=== PATIENT | male | born 1955 | race Caucasian/White ===

== ENCOUNTER 2021-12-19 11:03 | Emergency (ER) | payer MEDICARE ==
[~2021-12-19] VITALS: Ht 177.8 cm; Wt 76.5 kg
[2021-12-19] MEDS ORDERED: MORPHINE 4 MG/ML 1ML VIAL/SYRINGE IV ONE (13:25)
[2021-12-19] MEDS ORDERED: ONDANSETRON 4MG 2ML VIAL IV ONE (13:25)
[2021-12-19] MEDS ORDERED: NS 1,000 ML IV SCH (15:45)
[2021-12-19] MEDS ORDERED: MORPHINE 4 MG/ML 1ML VIAL/SYRINGE IV PRN (15:45)
[2021-12-19 16:41] LABS: RSV AMPLIFICATION NEGATIVE (NEGATIVE)
[2021-12-19 16:46] VITALS: BP 162/80
[2021-12-19 16:49] LABS: HEMATOCRIT 43.6 % (42.0-52.0); HEMOGLOBIN 14.2 g/dl (13.5-17.5); MEAN CORPUSCULAR HEMOGLOBIN 31.8 pg (27.0-33.0); MEAN CORPUSCULAR HGB CONC 32.6 g/dl (32.0-36.5); MEAN CORPUSCULAR VOLUME 97.5 fl (80.0-96.0); PLATELET COUNT, AUTOMATED 289 10^3/uL (150-450); RED BLOOD COUNT 4.47 10^6/uL (4.30-6.10); WHITE BLOOD COUNT 14.4 10^3/uL (4.0-10.0)
[2021-12-19 16:58] LABS: BLOOD UREA NITROGEN 21 MG/DL (7-18); CALCIUM LEVEL 9.1 MG/DL (8.8-10.2); CARBON DIOXIDE LEVEL 24 MEQ/L (21-32); CHLORIDE LEVEL 107 MEQ/L (98-107); CREATININE FOR GFR 1.11 MG/DL (0.70-1.30); GLOMERULAR FILTRATION RATE > 60.0 (>49); GLUCOSE, FASTING 76 MG/DL (70-100); POTASSIUM SERUM 4.4 MEQ/L (3.5-5.1); SODIUM LEVEL 136 MEQ/L (136-145)
== END 2021-12-19 17:15 | disposition short-term general hospital (02) ==
LOC: M ED 11:03 → EDBD 11:03 → M ED 17:15
DX: S92.062A Displaced intraarticular fracture of left calcaneus, initial encounter for closed fracture (principal); S32.010A Wedge compression fracture of first lumbar vertebra, initial encounter for closed fracture; S32.040A Wedge compression fracture of fourth lumbar vertebra, initial encounter for closed fracture; S32.048A Other fracture of fourth lumbar vertebra, initial encounter for closed fracture; S92.061A Displaced intraarticular fracture of right calcaneus, initial encounter for closed fracture; M51.36 Other intervertebral disc degeneration, lumbar region; M51.37 Other intervertebral disc degeneration, lumbosacral region; M25.78 Osteophyte, vertebrae; I70.0 Atherosclerosis of aorta; W14.XXXA Fall from tree, initial encounter; Y92.828 Other wilderness area as the place of occurrence of the external cause; Y93.89 Activity, other specified; F12.10 Cannabis abuse, uncomplicated
CPT/HCPCS: 72110; 72131; 73610; 73650; 73700; 80048; 85027; 87631; 93005; 96361; 96374; 96375; 96376; 99284; J2270; J2405

== ENCOUNTER 2024-12-08 12:04 | Inpatient (IN) | payer MEDICARE ==
[~2024-12-08] VITALS: Ht 177.8 cm; Wt 72.7 kg
[2024-12-08] MEDS: ONDANSETRON 4MG 2ML VIAL IV ONE (12:31)
[2024-12-08] MEDS: MORPHINE 4 MG/ML 1 ML VIAL IV ONE (12:32)
[2024-12-08 12:36] LABS: BASO # 0.1 10^3/uL (0.0-0.2); BASO % 0.8 % (0.0-1.0); EOS # 0.2 10^3/uL (0.0-0.5); EOS % 1.4 % (0.0-3.0); LYMPH # 2.1 10^3/uL (1.5-5.0); LYMPH % 19.3 % (24.0-44.0); MONO # 1.1 10^3/uL (0.0-0.8); MONO % 10.6 % (2.0-8.0); NEUTROPHILS # 7.2 10^3/uL (1.5-8.5); NEUTROPHILS % 67.3 % (36.0-66.0); PLATELET COUNT, AUTOMATED 312 10^3/uL (150-450)
[2024-12-08 12:52] LABS: INR 0.86
[2024-12-08 13:03] LABS: ALT/SGPT 10 U/L (7.0-40); AST/SGOT 23 U/L (<34); CALCIUM LEVEL 8.8 MG/DL (8.3-10.6); CARBON DIOXIDE LEVEL 26 MMOL/L (20-31); CHLORIDE LEVEL 108 MMOL/L (98-107); CREATININE FOR GFR 1.12 MG/DL (0.70-1.30); GLOMERULAR FILTRATION RATE 71.1 (>49); POTASSIUM SERUM 4.5 MMOL/L (3.5-5.1); SODIUM LEVEL 141 MMOL/L (136-145)
[2024-12-08] MEDS: MORPHINE 4 MG/ML 1 ML VIAL IV PRN (13:33)
[2024-12-08] MEDS: NS (Normal Saline) 0.9% 1,000 ML IV SCH (15:25)
[2024-12-08] MEDS ORDERED: HOME MED LIST COMPLETE! XX SCH (16:15)
[2024-12-08] MEDS ORDERED: HYDROmorphone 2 MG TAB PO PRN (18:00)
[2024-12-08] MEDS ORDERED: MORPHINE 4 MG/ML 1 ML VIAL IV PRN (18:00)
[2024-12-08 20:06] VITALS: BP 159/96; TEMP 97.2; O2SAT 96
[2024-12-08] MEDS: HYDROmorphone 2 MG TAB PO PRN (20:25)
[2024-12-08] MEDS: LR 1,000 ML IV SCH (20:29)
[2024-12-08] MEDS: DOCUSATE SODIUM 100 MG CAPSULE PO ONE (20:29)
[2024-12-08] MEDS: MIRALAX *UNIT DOSE* 17 GM PACKET PO ONE (20:29)
[2024-12-09] VITALS (7 sets, daily range): BP systolic 134–161; BP diastolic 69–94; TEMP 97–98.2; O2SAT 94–98
[2024-12-09 07:16] LABS: PLATELET COUNT, AUTOMATED 270 10^3/uL (150-450)
[2024-12-09 07:53] LABS: CALCIUM LEVEL 8.3 MG/DL (8.3-10.6); CARBON DIOXIDE LEVEL 25 MMOL/L (20-31); CHLORIDE LEVEL 106 MMOL/L (98-107); CREATININE FOR GFR 0.90 MG/DL (0.70-1.30); GLOMERULAR FILTRATION RATE > 90.0 (>49); POTASSIUM SERUM 3.9 MMOL/L (3.5-5.1); SODIUM LEVEL 139 MMOL/L (136-145)
[2024-12-09] MEDS ORDERED: MIDAZOLAM INJ 2 MG/2 ML VIAL As Ordered ONE (07:54)
[2024-12-09] MEDS ORDERED: ACETAMINOPHEN 1000MG/100ML IV BAG As Ordered ONE (07:54)
[2024-12-09] MEDS ORDERED: LIDOCAINE 2% 100 MG/5 ML SDV (FOR ANES.) As Ordered ONE (07:54)
[2024-12-09] MEDS ORDERED: ESMOLOL 100 MG/10 ML VIAL As Ordered ONE (08:38)
[2024-12-09] MEDS ORDERED: ROCURONIUM BROMIDE 50MG/5ML VIAL As Ordered ONE (08:38)
[2024-12-09] MEDS: TRANEXAMIC ACID 100 MG/ML 10ML VIAL As Ordered ONE (09:12)
[2024-12-09] MEDS ORDERED: HYDROmorphone HCL 2 MG/ML 1 ML VIAL As Ordered ONE (09:15)
[2024-12-09] MEDS ORDERED: KETOROLAC 30 MG/ML 1 ML VIAL As Ordered ONE (09:24)
[2024-12-09] MEDS ORDERED: ONDANSETRON 4MG 2ML VIAL As Ordered ONE (09:24)
[2024-12-09] MEDS ORDERED: dexAMETHasone 4 MG/ML 1 ML VIAL As Ordered ONE (09:24)
[2024-12-09] MEDS: LIDOCAINE W/EPINEPHrine 1% 20 ML VIAL As Ordered ONE (09:46)
[2024-12-09] MEDS ORDERED: SUGAMMADEX SODIUM 200 MG/2 ML VIAL As Ordered ONE (10:53)
[2024-12-09] MEDS: VANCOMYCIN 1000MG/20ML VIAL As Ordered ONE (11:48)
[2024-12-09] MEDS ORDERED: MORPHINE 4 MG/ML 1 ML VIAL IV PRN (12:25)
[2024-12-09] MEDS ORDERED: HYDROmorphone 2 MG TAB PO PRN ×2 (12:25)
[2024-12-09] MEDS ORDERED: MORPHINE 10 MG/ML 1 ML VIAL IV PRN (12:42)
[2024-12-09] MEDS: ONDANSETRON 4MG 2ML VIAL IV PRN (13:04)
[2024-12-09] MEDS ORDERED: diphenhydrAMINE 50 MG/ML VIAL IV PRN (13:05)
[2024-12-09] MEDS ORDERED: HYDROMORPHONE HCL 0.5 MG/0.5 ML SYRINGE IV PRN (13:05)
[2024-12-09] MEDS: SENNA 8.6 MG TAB PO SCH (13:20)
[2024-12-09] MEDS: ASCORBIC ACID 500 MG TAB PO SCH (13:20)
[2024-12-09] MEDS: FERROUS SULFATE 325 MG TAB PO SCH (13:20)
[2024-12-09] MEDS: MIRALAX *UNIT DOSE* 17 GM PACKET PO SCH (14:14)
[2024-12-09] MEDS: DOCUSATE SODIUM 100 MG CAPSULE PO SCH (14:15)
[2024-12-09] MEDS: ACETAMINOPHEN *IV* 1,000 MG in IV 1 EA IV SCH (15:58)
[2024-12-09] MEDS: ceFAZolin SODIUM 2 GM in DEXTROSE 5% (D5W) ADV/MINI-BAG 50 ML IV SCH (16:57)
[2024-12-10 02:45] VITALS: BP 111/69; TEMP 97.9; O2SAT 97
[2024-12-10 06:20] LABS: BASO # 0.0 10^3/uL (0.0-0.2); BASO % 0.2 % (0.0-1.0); EOS # 0.0 10^3/uL (0.0-0.5); EOS % 0.2 % (0.0-3.0); LYMPH # 2.0 10^3/uL (1.5-5.0); LYMPH % 16.7 % (24.0-44.0); MONO # 1.5 10^3/uL (0.0-0.8); MONO % 12.6 % (2.0-8.0); NEUTROPHILS # 8.4 10^3/uL (1.5-8.5); NEUTROPHILS % 69.9 % (36.0-66.0); PLATELET COUNT, AUTOMATED 236 10^3/uL (150-450)
[2024-12-10 06:43] LABS: CALCIUM LEVEL 7.9 MG/DL (8.3-10.6); CARBON DIOXIDE LEVEL 25.0 MMOL/L (20-31); CHLORIDE LEVEL 106.0 MMOL/L (98-107); CREATININE FOR GFR 1.03 MG/DL (0.70-1.30); GLOMERULAR FILTRATION RATE 78.6 (>49); POTASSIUM SERUM 3.7 MMOL/L (3.5-5.1); SODIUM LEVEL 140.0 MMOL/L (136-145)
[2024-12-10 07:35] VITALS: BP 150/89; TEMP 97.9; O2SAT 97
[2024-12-10] MEDS: ENOXAPARIN 40 MG/0.4 ML SYRINGE (J1650 PER 10MG) SC SCH (09:02)
[2024-12-10 12:00] VITALS: BP 140/81; TEMP 98.1; O2SAT 92
[2024-12-10 15:19] VITALS: BP 141/83; TEMP 97.9; O2SAT 93
[2024-12-10 20:00] VITALS: BP 142/83; TEMP 97.9; O2SAT 96
[2024-12-11 04:00] VITALS: BP 135/89; TEMP 98.1; O2SAT 97
[2024-12-11 07:23] LABS: BASO # 0.1 10^3/uL (0.0-0.2); BASO % 0.5 % (0.0-1.0); EOS # 0.1 10^3/uL (0.0-0.5); EOS % 0.8 % (0.0-3.0); LYMPH # 1.9 10^3/uL (1.5-5.0); LYMPH % 17.0 % (24.0-44.0); MONO # 1.5 10^3/uL (0.0-0.8); MONO % 13.6 % (2.0-8.0); NEUTROPHILS # 7.4 10^3/uL (1.5-8.5); NEUTROPHILS % 67.6 % (36.0-66.0); PLATELET COUNT, AUTOMATED 268 10^3/uL (150-450)
[2024-12-11 07:41] LABS: CALCIUM LEVEL 8.0 MG/DL (8.3-10.6); CARBON DIOXIDE LEVEL 25 MMOL/L (20-31); CHLORIDE LEVEL 105 MMOL/L (98-107); CREATININE FOR GFR 0.91 MG/DL (0.70-1.30); GLOMERULAR FILTRATION RATE > 90.0 (>49); POTASSIUM SERUM 3.9 MMOL/L (3.5-5.1); SODIUM LEVEL 140 MMOL/L (136-145)
[2024-12-11 12:00] VITALS: BP 145/88; TEMP 97.9; O2SAT 99
[2024-12-11 20:00] VITALS: BP 104/80; TEMP 97.7; O2SAT 96
[2024-12-11] MEDS: HYDROmorphone 2 MG TAB PO PRN (20:18)
[2024-12-12 04:00] VITALS: BP 127/87; TEMP 97.7; O2SAT 98
[2024-12-12 06:17] LABS: PLATELET COUNT, AUTOMATED 292 10^3/uL (150-450)
[2024-12-12] MEDS ORDERED: ACET-897 PO (10:51)
[2024-12-12] MEDS ORDERED: ASPI325T58 PO (10:51)
== END 2024-12-12 12:24 | disposition home or self-care (01) | DRG 481 ==
LOC: EDBD 12:04 → M ED 12:04 → M ED INP 12:05 → M MSPAV 19:59 → OBSVTOIN 12-09 07:42
PROVIDERS: ADMIT Student in an Organized Health Care Education/Training Program; ATTEND Student in an Organized Health Care Education/Training Program
PROC: 0QS606Z Reposition Right Upper Femur with Intramedullary Internal Fixation Device, Open Approach (ICD-10-PCS; principal; 2024-12-09 08:30)
DX: S72.21XA Displaced subtrochanteric fracture of right femur, initial encounter for closed fracture (principal); D62 Acute posthemorrhagic anemia; I25.2 Old myocardial infarction; V86.99XA Unspecified occupant of other special all-terrain or other off-road motor vehicle injured in nontraffic accident, initial encounter; Y93.53 Activity, golf